=== PATIENT | female | born 1940 | race Caucasian/White ===

== ENCOUNTER → 2019-01-16 | Outpatient (CLI) | payer MEDICARE, OTHER ==
--- NOTE | 2019-01-16 16:13 | REP ---
Clinical: Left foot pain. Technique: AP, lateral, bilateral oblique views of the left foot. Findings: Age-related osteopenia and degenerative changes are appreciated including moderate degenerative changes through the midfoot with subchondral sclerosis/heterogeneity and subtle subchondral cystic changes with cortical irregularities and joint space narrowing. No obvious acute fracture or dislocation. Small calcaneal heal spur noted. Impression: Moderate arthritic degenerative changes through the midfoot along with age-related osteopenia and degenerative changes throughout the remainder of the examination. No obvious acute fracture or dislocation. Electronically Signed by Xander Brand MD 01/16/2019 10:37 A
== END ==
LOC: M LRY 10:24
PROVIDERS: ATTEND Nurse Practitioner Family
DX: M85.872 Other specified disorders of bone density and structure, left ankle and foot (principal); M77.32 Calcaneal spur, left foot; M79.672 Pain in left foot
CPT/HCPCS: 73630; G0463